=== PATIENT | male | born 1995 | race Caucasian/White ===

== ENCOUNTER 2016-10-01 17:22 | Inpatient (IN) | payer OTHER ==
[~2016-10-01] VITALS: Ht 188 cm; Wt 102.1 kg
--- NOTE | 2016-10-01 21:12 | NUR ---
INTAKE ASSESSMENT VS BP- 138/74 T-98.0 P-67 R-17 SpO2 AT 98% IN RA . PA-05/17 HEADACHE. PATIENT ALERT AND ORIENTED X 4. AMBULATORY AND GAIT IS STEADY. SPEECH IS CLEAR AND ABLE TO ANSWER QUESTIONS APPROPRIATELY. PATIENT STATES HE DOESN'T HAVE ALLERGY TO MEDICATION OR FOOD. NO SEIZURE HISTORY. WILL CONTINUE ADMISSION ON 3RD FLOOR.
--- NOTE | 2016-10-01 21:17 | NUR ---
ADMISSION NOTE PATIENT IS A 21 YEAR OLD MALE WHO PRESENTS TO [facility] FOR SUPERVISED WITHDRAWAL FROM ETOH/COCAINE DEPENDENCE. HEIGHT IS 6'2 AND WEIGHT IS 225 LBS. SKIN CLEAR AND INTACT. NO SKIN BREAKDOWN. LUNGS CLEAR AND ABDOMEN SOFT AND NON-DISTENDED. BOWEL SOUNDS ACTIVE ON ALL 4 QUADRANT. PATIENT HAD BOWEL MOVEMENT TODAY . NO DIFFICULTY URINATING. PATIENT REQUESTED TO BE FULL CODE AND ON REGULAR DIET. PATIENT REPORTS PMH OF ASTHMA (CHILDHOOD). ACCORDING TO HIM IT'S HIS FIRST TIME IN TREATMENT . HE STATES THAT HE DOES NOT HAVE PCP. HE IS UNEMPLOYED AND LIVES WITH HIS 'S PARENTS. HE IS HERE BECAUSE HE WANTS TO GET BETTER AND WANT TO STOP THE BAD HABIT " THE ADDICTION" . HE SMOKES A PACK A DAY SINCE HE WAS 15 YEARS OLD. PATIENTS DRUG OF CHOICE ARE: 1. ALCOHOL (VODKA)- STARTED DRINKING SINCE AGE 15. PATIENT DRINKS 375 ML-750 ML DAILY FOR 3-4 YEARS. LAST DRINK WAS UNKNOWN AMOUNT OF SAKE 3 DAYS AGO 09/28/16 2. COCAINE (SNORT)-STARTED USING SINCE AGE 18. PATIENT STATES HES BEEN USING 1-4 GRAMS DAILY FOR A YEAR. LAST USE WAS 1 GRAM 3 DAYS AGO 09/28/16 PATIENT DOES NOT HAVE HOME MEDICATION. DENIES SI/HI. HIS W/D SYMPTOMS WHEN HES NOT USING ARE DEPRESSION, ANXIETY AND SHAKING. PATIENT APPEARS TO BE ANXIOUS. CIWA 2. HEADACHE 4/10 PAIN IS TOLERABLE HE STATES. LONGEST PERIOD OF SOBRIETY WAS 20 DAYS ON SEPTEMBER 06 SEP 25 ON HIS OWN HE STATES. PATIENT ORIENTED TO SURROUNDINGS AND HOW TO USE CALL LIGHT. EXPLAINED TO PATIENT SMOKING POLICY, [id number] VITAL SIGN CHECK AND UNIT POLICIES . PATIENT WAS PLACED ON FALL/SEIZURE PRECAUTION. SAFETY MEASURES IN PLACE. CALL LIGHT IN REACH. WILL CONTINUE TO MONITOR.
[2016-10-01] MEDS ORDERED: ONDANSETRON 4 MG/2 ML VIAL IM PRN (21:30)
[2016-10-01] MEDS ORDERED: ONDANSETRON ODT 4 MG TAB.RAPDIS SL PRN (21:30)
[2016-10-01] MEDS ORDERED: DICYCLOMINE HCL 20 MG TABLET PO PRN (21:30)
[2016-10-01] MEDS ORDERED: HYDROXYZINE PAMOATE 25 MG CAPSULE PO PRN (21:30)
[2016-10-01] MEDS ORDERED: IBUPROFEN 400 MG TABLET PO PRN (21:30)
[2016-10-01] MEDS ORDERED: MAGNESIUM HYDROXIDE 30 ML LIQUID UDC PO PRN (21:30)
[2016-10-01] MEDS ORDERED: MIRALAX 17 GM POWD.PACK PO PRN (21:30)
[2016-10-01] MEDS ORDERED: THIAMINE HCL 200 MG/2 ML VIAL IM ONE (21:30)
[2016-10-01] MEDS ORDERED: MAG HYDROX/AL HYDROX/SIMETH 30 ML LIQUID UDC PO PRN (21:30)
[2016-10-01] MEDS ORDERED: ACETAMINOPHEN 325 MG TABLET PO PRN (21:30)
[2016-10-01] MEDS ORDERED: LORAZEPAM 2 MG/1 ML VIAL IM PRN (21:30)
[2016-10-01] MEDS ORDERED: LORAZEPAM 1 MG TABLET PO PRN ×2 (21:30)
[2016-10-01] MEDS ORDERED: LOPERAMIDE HCL 2 MG CAPSULE PO PRN ×2 (21:30)
[2016-10-01] MEDS ORDERED: CLONIDINE HCL 0.1 MG TABLET PO PRN (21:30)
[2016-10-01 22:12] VITALS: BP 138/74
--- NOTE | 2016-10-01 22:36 | NUR ---
THIAMINE INJECTION ADMINISTRATION THIAMINE INJECTION GIVEN ON LEFT DELTOID.
[2016-10-01 22:44] LABS: BASOPHILS # (AUTO) 0.1 K/uL (0.0-8.0); BASOPHILS % (AUTO) 0.7 % (0.0-2.0); EOSINOPHILS # (AUTO) 0.3 K/uL (0.0-0.7); EOSINOPHILS % (AUTO) 3.5 % (0.0-7.0); HEMATOCRIT 45.9 % (40-50); HEMOGLOBIN 15.5 G/DL (14.0-18.0); LYMPHOCYTES # (AUTO) 2.1 K/UL (0.8-4.8); LYMPHOCYTES % (AUTO) 24.7 % (20.5-74.5); MEAN CORPUSCULAR HEMOGLOBIN 29.3 UUG (27.0-31.0); MEAN CORPUSCULAR HGB CONC 34 g/dL (32.0-37.0); MEAN CORPUSCULAR VOLUME 86.6 FL (82.0-92.0); MONOCYTES # (AUTO) 0.6 K/UL (0.1-1.30); MONOCYTES % (AUTO) 7.1 % (0-11); NEUTROPHILS # (AUTO) 5.6 K/UL (1.8-8.9); PLATELET COUNT (AUTO) 263 K/UL (150-450); WHITE BLOOD COUNT (AUTO) 8.7 K/UL (4.0-11.2)
[2016-10-01 23:00] LABS: ETHANOL < 3 MG/DL (0-0)
[2016-10-01 23:15] LABS: ALANINE AMINOTRANSFERASE 31 U/L (16-63); AMYLASE 53 U/L (25-115); ASPARTATE AMINOTRANSFERASE < 5 U/L (15-37); CHLORIDE 103 mmol/L (98-107); CREATININE 1.3 mg/dL (0.6-1.3); GLUCOSE 117 mg/dL (74-106); LIPASE 154 U/L (73-393); MAGNESIUM 1.8 mg/dL (1.8-2.4); POTASSIUM 3.6 mmol/L (3.5-5.1); UREA NITROGEN, BLOOD 17 mg/dL (7-18)
[2016-10-01 23:24] LABS: THYROID STIMULATING HORMONE 1.903 mIU/mL (0.358-3.740)
[2016-10-01 23:48] LABS: CARBON DIOXIDE 26 mmol/L (21-32)
[2016-10-01 23:49] LABS: ALKALINE PHOSPHATASE 77 U/L (50-136); BILIRUBIN,TOTAL 0.1 mg/dL (0.2-1.0); TOTAL PROTEIN, SERUM 7.6 g/dL (6.4-8.2)
[2016-10-02] VITALS: BP 112/52
[2016-10-02 04:00] VITALS: BP 106/53
--- NOTE | 2016-10-02 07:24 | NUR ---
END OF SHIFT NOTE PATIENT HAD UNEVENTFUL NIGHT. PATIENT IS NEWLY ADMITTED FOR ETOH/COCAINE DEPENDENCE. PATIENT REPORTS ANXIETY DURING ADMISSION. NO PRN MEDICATION GIVEN. PATIENT WAS GIVEN THIAMINE INJECTION ON LEFT DELTOID, TOLERATED WELL. NO ADVERSE REACTION. PATIENT SLEPT 8 HOURS. FLUID INTAKE OF 355 ML. VOIDED X 1. NO BM. LAST CIWA 1. ON FALL/SEIZURE PRECAUTION. SAFETY MEASURES IN PLACE. CALL LIGHT IN REACH. WILL CONTINUE TO MONITOR. I
[2016-10-02 07:26] LABS: *AMPHETAMINE, URINE NEGATIVE (NEGATIVE); *BARBITURATE, URINE NEGATIVE (NEGATIVE); *CANNABINOID, URINE NEGATIVE (NEGATIVE); *COCCAINE, URINE POSITIVE (NEGATIVE); *OPIATE, URINE NEGATIVE (NEGATIVE); *PHENCYCLIDINE SCREEN,URINE NEGATIVE (NEGATIVE)
[2016-10-02] MEDS ORDERED: LOPERAMIDE HCL 2 MG CAPSULE PO PRN (07:30)
[2016-10-02] MEDS ORDERED: ALBUTEROL SULFATE 2.5 MG/ 0.5 ML NEBU NEB PRN (07:30)
[2016-10-02] MEDS ORDERED: LORAZEPAM 1 MG TABLET PO PRN (07:30)
--- NOTE | 2016-10-02 07:35 | NUR ---
START OF SHIFT Pt is a 21 yr old male, A&Ox3. Pt is a newly admit for ETOH Dependence and is on PRN's for s/s of w/d. No PRN's were given during the night. Pt slept for 8 hrs. Last CIWA score was 1. Pt is in bed resting with respirations even and unlabored No acute distress noted. Skin is intact, warm and dry to touch. No tremors seen or felt. Pt denies any n/v at this time. Safety precautions observed. Call light is within reach.Will continue to monitor.
[2016-10-02 08:00] VITALS: BP 131/73
[2016-10-02] MEDS: THIAMINE HCL 100 MG TABLET PO SCH (08:24)
[2016-10-02] MEDS: MULTIVITAMINS,THERAPEUTIC TABLET PO SCH (08:25)
[2016-10-02] MEDS: FOLIC ACID 1 MG TABLET PO SCH (08:25)
[2016-10-02] MEDS: GABAPENTIN 300 MG CAPSULE PO SCH ×3 (08:26→20:56)
[2016-10-02] MEDS ORDERED: TUBERCULIN,PURIF.PROT.DERIV. 5 TU/0.1 ML TEST ID ONE (09:00)
[2016-10-02] MEDS: LORAZEPAM 1 MG TABLET PO SCH ×4 (11:49→20:56)
[2016-10-02 12:00] VITALS: BP 157/87
[2016-10-02] MEDS: SERTRALINE HCL 50 MG TABLET PO SCH (13:41)
[2016-10-02 16:30] VITALS: BP 134/81
--- NOTE | 2016-10-02 18:44 | NUR ---
END OF SHIFT Pt is a 21 yr old male, A&Ox3. Pt is a newly admit for ETOH Dependence and started on 3 day Ativan taper as ordered. Medication was gladys well. No PRN's were given during the day. Pt has been cooperative with medication regimen. Pt refused to attend any group sessions. Last CIWA score was 3 at 1600. Pt states of mild anxiety but is able to cope with anxiety level. Skin is intact, warm and dry to touch. Fine tremors are seen. Pt denies any n/v at this time. Encouraged increase fluid intake. Safety precautions observed. Call light is within reach.
[2016-10-02 20:00] VITALS: BP 108/90
--- NOTE | 2016-10-02 20:00 | NUR ---
START OF SHIFT NOTE RECEIVED PATIENT IN THE ROOM. ALERT AND ORIENTED X 4. RESPIRATION EVEN AND UNLABORED. NO SOB. PATIENT C/O ANXIETY , SWEATING, NOTED WITH FINE TREMORS, NO N/V, DENIES ANY PAIN AT THIS TIME. PATIENT DID NOT ATTEND ANY GROUPS, ENCOURAGED AND WILL TRY TOMORROW. PATIENT WITH GOOD APPETITE AND DRINKING FLUIDS WELL. CIWA 4. RECEIVED REPORT FROM DAY SHIFT NURSE. PATIENT CONTINUE ON 3 DAY ATIVAN TAPER, STARTED TODAY, TOLERATED WELL., NO ADVERSE REACTION. PATIENT DID NOT REQUIRE ANY PRN MEDICATION. LAST CIWA 3. ON FALL /SEIZURE PRECAUTION. SAFETY MEASURES IN PLACE. CALL LIGHT IN REACH. WILL CONTINUE TO MONITOR.
[2016-10-02] MEDS: diphenhydrAMINE 50 MG CAPSULE PO PRN (20:56)
--- NOTE | 2016-10-02 20:56 | NUR ---
PRN BENADRYL ADMINISTRATION PATIENT REQUESTS FOR SLEEP AID. PRN BENADRYL GIVEN. WILL MONITOR FOR EFFECTIVENESS
--- NOTE | 2016-10-02 22:00 | NUR ---
MILAGROS FERNANDES RE-ASSESSMENT PATIENT IN BED WITH HIS EYES CLOSED. RESPIRATION EVEN AND UNLABORED. SAFETY MEASURES IN PLACE. CALL LIGHT IN REACH. WILL CONTINUE TO MONITOR
--- NOTE | 2016-10-03 | NUR ---
CIWA/VS PATIENT REFUSING VS, PUTTING HIS ARMS AWAY. CIWA UNABLE TO ASSESS. RESPIRATION EVEN AND UNLABORED. SAFETY MEASURES IN PLACE. CALL LIGHT IN REACH. WILL CONTINUE TO MONITOR.
[2016-10-03 04:00] VITALS: BP 107/52
--- NOTE | 2016-10-03 07:05 | NUR ---
END OF SHIFT NOTE PATIENT REMAIN ALERT AND ORIENTED X 4. NO SOB. PATIENT REPORTED ANXIETY , SWEATING, NOTED WITH FINE TREMORS, NO N/V, DENIES ANY PAIN DURING SHFIT. PATIENT DID NOT ATTEND ANY GROUPS, ENCOURAGED AND WILL TRY TODAY. PATIENT WITH GOOD APPETITE AND DRINKING FLUIDS WELL. PATIENT CONTINUE ON 3 DAY ATIVAN TAPER, , TOLERATED WELL. NO ADVERESE REACTION. PATIENT WAS GIVEN PRN BENADRYL. ON FALL /SEIZURE PRECAUTION. SAFETY MEASURES IN PLACE. CALL LIGHT IN REACH. WILL CONTINUE TO MONITOR. SLEPT 9 HOURS. FLUID INTAKE 1,507 ML. VOIDED X 2. BM X 1. LAST CIWA 2 .
--- NOTE | 2016-10-03 07:30 | NUR ---
START OF SHIFT Pt is a 21 yr old male, A&Ox3. Pt was admitted on 10/01/16 for ETOH Dependence and is on 3 day Ativan taper as ordered. Medication gladys well. No PRN's were given during the night. Pt slept for 9 hrs. Last CIWA score was 2. Pt is currently in bed resting with respirations even and unlabored. No acute distress noted. Skin is intact, warm and dry to touch. No tremors seen or felt. Pt denies any n/v at this time. Safety precautions observed. Call light is within reach.Will continue to monitor
[2016-10-03 08:00] VITALS: BP 131/84
[2016-10-03] MEDS: SERTRALINE HCL 50 MG TABLET PO SCH (09:01)
[2016-10-03] MEDS: FOLIC ACID 1 MG TABLET PO SCH (09:01)
[2016-10-03] MEDS: THIAMINE HCL 100 MG TABLET PO SCH (09:01)
[2016-10-03] MEDS: GABAPENTIN 300 MG CAPSULE PO SCH ×3 (09:01→20:27)
[2016-10-03] MEDS: MULTIVITAMINS,THERAPEUTIC TABLET PO SCH (09:01)
[2016-10-03] MEDS: LORAZEPAM 1 MG TABLET PO SCH ×3 (09:01→20:27)
[2016-10-03 11:09] LABS: HEPATITIS B SURFACE AG Negative (Negative)
[2016-10-03 12:00] VITALS: BP 155/93
[2016-10-03 16:00] VITALS: BP 131/80
--- NOTE | 2016-10-03 18:56 | NUR ---
END OF SHIFT Pt is a 21 yr old male, A&Ox3. Pt is a newly admit for ETOH Dependence and is on 3 day Ativan taper as ordered. Medication was gladys well. No PRN's were given during the day. Pt has been cooperative with medication regimen. Pt attended group sessions during the day. Last CIWA score was 3 at 1600. Pt denies any anxiety or agitation. Skin is intact, warm and moist to touch. No tremors seen or felt. Pt denies any n/v at this time. Encouraged increase fluid intake. Safety precautions observed. Call light is within reach.
--- NOTE | 2016-10-03 19:15 | NUR ---
START OF SHIFT Received 21 year old male patient admitted on 10/02/15 for ETOH and Cocaine dependency. Pt is full code with NKA. He reports a PMHx of asthma. He reports drinking Vodka 375 mL-750mL daily for 3 years. Last dose was Sake on 09/28/16. Cocaine ( snort) 1-4 grams daily for 1 year. Last dose was 1 gram on 09/28/16. Pt denies a history of seizures. Pt was placed on a 3 day Ativan taper and tolerating well. Per endorsement, pt did not receive or request PRN medications. Pt is alert and oriented x4, breathing is even and unlabored. Safety measures in place. Will continue to monitor.
[2016-10-03 20:00] VITALS: BP 137/91
[2016-10-03] MEDS: diphenhydrAMINE 50 MG CAPSULE PO PRN (20:27)
--- NOTE | 2016-10-03 20:27 | NUR ---
PRN BENADRYL Pt complains of inability to sleep. PRN Benadryl administered as ordered. Breathing even and unlabored, respirations 16, safety measures in place. Will monitor effectiveness.
--- NOTE | 2016-10-03 21:27 | NUR ---
PRN BENADRYL REASSESSMENT PRN medication effective. Pt lying in bed with eyes closed noted to be asleep. Respirations 16, breathing is even and unlabored. Safety measures in place. Will continue to monitor.
--- NOTE | 2016-10-04 | NUR ---
VITALS REFUSED/CIWA DEFERRED 0000 vitals refused. CIWA deferred d/t pt lying in bed with eyes closed noted to be asleep. Respirations 16, breathing is even and unlabored. Safety measures in place. Will monitor.
--- NOTE | 2016-10-04 04:00 | NUR ---
VITALS REFUSED/CIWA DEFERRED 0400 vitals refused. CIWA deferred d/t pt lying in bed with eyes closed noted to be asleep. Respirations 16, breathing is even and unlabored. Safety measures in place. Will continue to monitor.
--- NOTE | 2016-10-04 06:56 | NUR ---
END OF SHIFT Pt is a 21 year old male patient admitted on 10/02/15 for ETOH and Cocaine dependency. Pt is full code with NKA. He reports a PMHx of asthma. Pt continues on a 3 day Ativan taper and tolerating well. [id number] he received PRN Benadryl. He slept a total of 9 hrs, Intake: 710 mL, Void: x1, BM:0, CIWA:2. Pt remains alert and oriented x4, breathing is even and unlabored. Safety measures in place. Endorsed to oncoming shift.
--- NOTE | 2016-10-04 07:30 | NUR ---
START OF SHIFT Pt is a 21 yr old male, A&Ox3. Pt was admitted on 10/01/16 for ETOH Dependence and is on 3 day Ativan taper as ordered. Medication gladys well. Pt received Benadryl PRN during the night for sleep. Medication was effective. Pt slept for 9 hrs. Last CIWA score was 2. Pt is currently in bed resting with respirations even and unlabored. No acute distress noted. Skin is intact, warm and dry to touch. No tremors seen or felt. Pt denies any n/v at this time. Safety precautions observed. Call light is within reach.Will continue to monitor.
[2016-10-04 08:09] VITALS: BP 112/62
[2016-10-04] MEDS: THIAMINE HCL 100 MG TABLET PO SCH (09:03)
[2016-10-04] MEDS: FOLIC ACID 1 MG TABLET PO SCH (09:03)
[2016-10-04] MEDS: SERTRALINE HCL 50 MG TABLET PO SCH (09:03)
[2016-10-04] MEDS: MULTIVITAMINS,THERAPEUTIC TABLET PO SCH (09:03)
[2016-10-04] MEDS: GABAPENTIN 300 MG CAPSULE PO SCH ×3 (09:03→20:13)
[2016-10-04] MEDS: LORAZEPAM 1 MG TABLET PO SCH ×2 (09:03→20:14)
--- NOTE | 2016-10-04 10:13 | NUR ---
Therapist prompted client about group times. Client stated he would attend all groups today.
[2016-10-04 12:00] VITALS: BP 137/66
[2016-10-04 16:00] VITALS: BP 158/79
--- NOTE | 2016-10-04 18:17 | NUR ---
PRN'S GIVEN Pt is c/o increase anxiety. Vistaril 50mg PO PRN was given as ordered. Medication gladys well. Will continue to monitor.
--- NOTE | 2016-10-04 18:46 | NUR ---
END OF SHIFT Pt is a 21 yr old male, A&Ox3. Pt was admitted on 10/01/16 for ETOH Dependence and is on 3 day Ativan taper as ordered. Medication was gladys well. Pt received Vistaril PRN for anxiety, medication was effective. Pt has been cooperative with medication regimen. Pt attended group sessions during the day. Last CIWA score was 2 at 1600. Skin is intact, warm and dry to touch. No tremors seen or felt. Pt denies any n/v at this time. Encouraged increase fluid intake. Safety precautions observed. Call light is within reach.
--- NOTE | 2016-10-04 19:15 | NUR ---
START OF SHIFT Received 21 year old male patient admitted on 10/02/15 for ETOH and Cocaine dependency. Pt is full code with NKA. He reports a PMHx of asthma. He reports drinking Vodka 375 mL-750mL daily for 3 years. Last dose was Sake on 09/28/16. Cocaine ( snort) 1-4 grams daily for 1 year. Last dose was 1 gram on 09/28/16. Pt denies a history of seizures. Pt is receiving 3 day Ativan taper and tolerating well. Per endorsement, pt did received PRN Vistaril. Pt is alert and oriented x4, breathing is even and unlabored. Safety measures in place. Will continue to monitor.
[2016-10-04 20:00] VITALS: BP 135/92
[2016-10-04] MEDS: CLONIDINE HCL 0.1 MG TABLET PO SCH (20:14)
--- NOTE | 2016-10-05 | NUR ---
VITALS REFUSED/CIWA DEFERRED Pt refused 0000 vital signs. CIWA deferred d/t pt lying in bed with eyes closed noted to be asleep. Respirations 16, breathing even and unlabored. Will continue to monitor.
--- NOTE | 2016-10-05 04:00 | NUR ---
VITALS REFUSED/CIWA DEFERRED Pt refused 0400 vital signs. CIWA deferred d/t pt lying in bed with eyes closed noted to be asleep. Respirations 16, breathing even and unlabored. Will monitor.
--- NOTE | 2016-10-05 07:04 | NUR ---
END OF SHIFT Pt is a 21 year old male patient admitted on 10/02/15 for ETOH and Cocaine dependency. Pt is full code with NKA. He reports a PMHx of asthma. He completed his 3 day Ativan taper and tolerated well. He did not receive or request PRN medications. He slept a total of 7 hrs, Intake:1210 mL Void:x3 BM:0 CIWA:3. Pt remains alert and oriented x4, breathing is even and unlabored. Safety measures in place. Endorsed to oncoming shift.
--- NOTE | 2016-10-05 07:24 | NUR ---
Start of shift note; Received report from night nurse. Patient is a 21 year old male admitted on 10/01/16 for ETOH/Cocaine dependence. Patient was placed on a 3 day Ativan taper, no adverse reactions noted. Patient reported history of asthma. Patient is on full code status. NKA and on a regular diet. Patient slept for 7 hours. Patient's last CIWA is 3 at 2000. Patient is on fall and seizure precaution. Bed in lowest position, call light within reach. Will continue to monitor patient.
[2016-10-05 08:00] VITALS: BP 102/61
[2016-10-05] MEDS: THIAMINE HCL 100 MG TABLET PO SCH (08:29)
[2016-10-05] MEDS: SERTRALINE HCL 50 MG TABLET PO SCH (08:29)
[2016-10-05] MEDS: MULTIVITAMINS,THERAPEUTIC TABLET PO SCH (08:29)
[2016-10-05] MEDS: FOLIC ACID 1 MG TABLET PO SCH (08:29)
[2016-10-05] MEDS: GABAPENTIN 300 MG CAPSULE PO SCH ×3 (08:29→20:48)
[2016-10-05 12:00] VITALS: BP 136/61
[2016-10-05 15:18] LABS: *AMPHETAMINE, URINE NEGATIVE (NEGATIVE); *BARBITURATE, URINE NEGATIVE (NEGATIVE); *CANNABINOID, URINE NEGATIVE (NEGATIVE); *COCCAINE, URINE NEGATIVE (NEGATIVE); *OPIATE, URINE NEGATIVE (NEGATIVE); *PHENCYCLIDINE SCREEN,URINE NEGATIVE (NEGATIVE)
[2016-10-05 16:00] VITALS: BP 108/70
--- NOTE | 2016-10-05 18:15 | NUR ---
End of shift note; Patient is AOX4. Patient is a 21 year old male admitted on 10/01/16 for ETOH/Cocaine dependence. Patient was placed on a 3 day Ativan taper, completed taper without any adverse reactions noted. Patient reported history of asthma. Patient is on full code status. NKA and on a regular diet. Patient remained compliantr with treatment plan and medication regime. Patient is medically cleared for discharge tomorrow per MD. All safety measures secured. Met all needs.
--- NOTE | 2016-10-05 19:15 | NUR ---
START OF SHIFT Received 21 year old male patient admitted on 10/02/15 for ETOH and Cocaine dependency. Pt is full code with NKA. He reports a PMHx of asthma. He reports drinking Vodka 375 mL-750mL daily for 3 years. Last dose was Sake on 09/28/16. Cocaine ( snort) 1-4 grams daily for 1 year. Last dose was 1 gram on 09/28/16. Pt denies a history of seizures. He completed his 3 day Ativan taper and tolerated well. He is scheduled to be DC tomorrow to [facility]. Per endorsement, pt did not receive or request PRN medications. Pt is alert and oriented x4, breathing is even and unlabored. Safety measures in place. Will continue to monitor.
[2016-10-05 20:04] VITALS: BP 126/81
[2016-10-05] MEDS ORDERED: DIPH50CA37 PO (20:19)
[2016-10-05] MEDS ORDERED: CLON0.1T14 PO (20:19)
[2016-10-05] MEDS ORDERED: GABA-534 PO (20:19)
[2016-10-05] MEDS ORDERED: SERT100T12 PO (20:19)
[2016-10-05] MEDS ORDERED: HYDR-3895 PO (20:19)
[2016-10-05] MEDS: CLONIDINE HCL 0.1 MG TABLET PO SCH (20:48)
[2016-10-05] MEDS: diphenhydrAMINE 50 MG CAPSULE PO PRN (23:04)
--- NOTE | 2016-10-05 23:04 | NUR ---
PRN BENADRYL Pt complains of inability to sleep. PRN Benadryl administered as ordered. Breathing even and unlabored, safety measures in place. Will monitor effectiveness.
--- NOTE | 2016-10-06 | NUR ---
PRN BENADRYL REASSESSMENT PRN medication is effective. Pt is lying in bed with eyes closed noted to be asleep. Respirations 16, breathing is even and unlabored. Safety measures in place. Will monitor.
--- NOTE | 2016-10-06 | NUR ---
VITALS REFUSED/CIWA DEFERRED 0000 vital signs refused. CIWA deferred d/t pt lying in bed with eyes closed noted to be asleep. Respirations 16, breathing even and unlabored. Will continue to monitor.
--- NOTE | 2016-10-06 04:00 | NUR ---
VITALS REFUSED/CIWA DEFERRED 0400 vital signs refused. CIWA deferred d/t pt lying in bed with eyes closed noted to be asleep. Respirations 16, breathing even and unlabored. Will monitor.
--- NOTE | 2016-10-06 07:12 | NUR ---
END OF SHIFT Pt is a 21 year old male patient admitted on 10/02/15 for ETOH and Cocaine dependency. Pt is full code with NKA. He reports a PMHx of asthma. He is scheduled to be DC today 10/06/16 to [facility]. At 2304 he received PRN Benadryl. He slept a total of 6hrs, Intake:1560mL, Void:x2, BM:0, CIWA:1. Pt remains alert and oriented x4, breathing is even and unlabored. Safety measures in place. Endorsed to oncoming shift.
--- NOTE | 2016-10-06 07:51 | NUR ---
Start of shift note; Received report from night nurse. Patient is a 21 year old male admitted on 10/01/16 for ETOH/Cocaine dependence. Patient was placed on a 3 day Ativan taper, no adverse reactions noted. Patient reported history of asthma. Patient is on full code status. NKA and on a regular diet. Patient slept for 6 hours. Patient's last CIWA is 1 at 2000. Patient is on fall and seizure precaution. Bed in lowest position, call light within reach. Patient is medically cleared for discharge today. Will continue to monitor patient.
[2016-10-06 08:00] VITALS: BP 110/67
[2016-10-06] MEDS: THIAMINE HCL 100 MG TABLET PO SCH (08:14)
[2016-10-06] MEDS: GABAPENTIN 300 MG CAPSULE PO SCH (08:14)
[2016-10-06] MEDS: FOLIC ACID 1 MG TABLET PO SCH (08:14)
[2016-10-06] MEDS: MULTIVITAMINS,THERAPEUTIC TABLET PO SCH (08:14)
[2016-10-06] MEDS ORDERED: SERTRALINE HCL 50 MG TABLET PO SCH (09:00)
[2016-10-06] MEDS ORDERED: SERTRALINE HCL 100 MG TABLET PO SCH (09:00)
--- NOTE | 2016-10-06 09:50 | NUR ---
Discharge note; Patient is AOX4. All valuables, belongings, prescriptions given to patient. Patient is medically cleared for discharge. Patient left the hospital at 0950 on 10/06/16. Patient left in a stable condition. Patient completed treatment without any adverse reactions. Patient denies suicidal ideations. Patient left in a stable condition. Met all needs.
== END 2016-10-06 09:50 | disposition other institution (70) | DRG 895 ==
LOC: SRC 20:35
PROVIDERS: ADMIT Internal Medicine; ATTEND Internal Medicine
PROC: HZ2ZZZZ Detoxification Services for Substance Abuse Treatment (ICD-10-PCS; principal; 2016-10-01)
PROC: HZ41ZZZ Group Counseling for Substance Abuse Treatment, Behavioral (ICD-10-PCS; 2016-10-03)
PROC: HZ31ZZZ Individual Counseling for Substance Abuse Treatment, Behavioral (ICD-10-PCS; 2016-10-04)
DX: F10.230 Alcohol dependence with withdrawal, uncomplicated (principal); F33.1 Major depressive disorder, recurrent, moderate; I15.9 Secondary hypertension, unspecified; F14.20 Cocaine dependence, uncomplicated; F13.10 Sedative, hypnotic or anxiolytic abuse, uncomplicated; Y90.9 Presence of alcohol in blood, level not specified; J45.20 Mild intermittent asthma, uncomplicated; F17.210 Nicotine dependence, cigarettes, uncomplicated; R73.9 Hyperglycemia, unspecified
CPT/HCPCS: 36415; 70030-TC; 80307; 80353; 83690; 83735; 84443; 85025; 86580; 86592; 86705; 86803; 87340; 87806; A4663; G0480; J3411; Q0163